=== PATIENT | female | born 1950 | race Caucasian/White ===

== ENCOUNTER → 2018-06-05 | Outpatient (CLI) | payer MEDICARE, OTHER ==
--- NOTE | 2018-06-06 10:32 | Diagnostic Imaging Report ---
Left hand MRI without contrast. History: Swelling. Pain. Decreased range of motion. Comparison: None Technique: Multiplanar multisequence MRI of the hand without contrast. Findings: There is marked abnormal soft tissue edema about the hand. This is most pronounced dorsally. Scattered degenerative changes are seen about the hand and wrist with erosive change at the distal third metacarpal, distal fifth metacarpal and involving several of the carpal bones predominantly the lunate bone. There is associated abnormal bone marrow edema most pronounced in the distal third metacarpal. There is an associated third and fifth metacarpal phalangeal joint effusion and synovitis. Similar but less severe changes are seen about the proximal interphalangeal joints of the fingers No acute fracture, subluxation or avascular necrosis. No ligamentous or tendon tear is seen. The visualized neurovascular bundles are intact. 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 Correlate with laboratory analysis. Signed by: Dr. Shaun Fan M.D. on 06/06/2018 10:29 AM
== END ==
LOC: MRI 08:55
PROVIDERS: ATTEND Plastic Surgery
DX: M79.642 Pain in left hand (principal); M79.89 Other specified soft tissue disorders

== ENCOUNTER → 2018-06-11 | Outpatient (RCR) | payer MEDICARE, OTHER | LOC: OT 06-04 14:39 | PROVIDERS: ATTEND Specialist | DX: M24.642 Ankylosis, left hand (principal) | CPT/HCPCS: 97022 ×3; 97110 ×4; 97140 ×2; 97166; G8987; G8988 ==

== ENCOUNTER 2018-07-01 13:00 | Outpatient (RCR) | payer MEDICARE, OTHER | END 2018-07-11 | LOC: OT 13:00 | PROVIDERS: ATTEND Specialist | DX: M24.642 Ankylosis, left hand (principal); M79.642 Pain in left hand; M25.442 Effusion, left hand; M25.642 Stiffness of left hand, not elsewhere classified; M25.632 Stiffness of left wrist, not elsewhere classified; R53.1 Weakness ==

== ENCOUNTER 2024-02-07 14:00 | Outpatient (RCR) | payer MEDICARE, OTHER | END 2024-02-09 | LOC: PT 14:00 | PROVIDERS: ATTEND Specialist | DX: M17.0 Bilateral primary osteoarthritis of knee (principal) ==

== ENCOUNTER 2024-02-27 14:00 | Outpatient (RCR) | payer MEDICARE, OTHER | END 2024-03-11 | LOC: PT 14:00 | PROVIDERS: ATTEND Specialist | DX: M17.0 Bilateral primary osteoarthritis of knee (principal); M62.81 Muscle weakness (generalized); R26.2 Difficulty in walking, not elsewhere classified ==

== ENCOUNTER 2024-03-12 08:14 | Outpatient (RCR) | payer MEDICARE, OTHER | END 2024-04-11 | LOC: PT 08:14 | PROVIDERS: ATTEND Specialist | DX: M17.0 Bilateral primary osteoarthritis of knee (principal); M62.81 Muscle weakness (generalized); M25.562 Pain in left knee ==